=== PATIENT | male | born 1965 ===

== ENCOUNTER → 2019-01-29 | Day surgery (SDC) | payer OTHER ==
--- NOTE | 2019-01-19 14:32 | NUR ---
PATIENT IS GOING TO STOP HIS PHENTERMINE ON Saturday01/29/19
[~2019-01-29] VITALS: Ht 185.4 cm; Wt 132.4 kg
[~2019-01-29] MED LIST: BUPR-472 PO; LIDOCAINE/SOD BICARB 8.4% SYR ID ONE; LISI-353 PO; NORMOSOL R SOLN(*) 1000 ML BAG 1,000 ML IV PRN; PHEN-580 PO; PROPOFOL EMUL(*) 10MG/ML 20 ML 20 ML ONE; PROPOFOL EMUL(*) 10MG/ML 20 ML 40 ML ONE; TEST1.253 INJ; TEST100V5 IM; [UNRECOGNIZED DRUG - CODE] INJ
[2019-01-29 10:19] VITALS: BP 137/88
[2019-01-29 12:06] VITALS: BP 112/61
[2019-01-29 12:15] VITALS: BP 122/70
[2019-01-29 12:51] VITALS: BP 121/85
[2019-01-29 12:53] VITALS: BP 149/98
--- NOTE | 2019-01-29 13:38 | NUR ---
1205- PT. RECEIVED FROM OR VIA STRETCHER WITH THE SIDERAIL UP. SBAR RECEIVED FROM SHERMAN ROBISON AND DR. BLANCHARD. PT. SEE ADMISSION ASSESSMENT. 1216- PT. STILL SLEEPING AND UNRESPONSIVE BUT I TURNED DOWN HIS O2 TO 3LPM NC. 1222- PT. AWAKE AND REMOVED THE O2 HIMSELF. HE IS ASKING FOR SOMETHING TO DRINK. 1225- PT. GIVEN WATER. NOW HE IS ASKING FOR SOMETHING TO EAT. 1230- PT. GIVEN CHEESE AND CRACKERS. 1245- PT. STATES THAT HE IS READY TO GO HOME SO HIS PHONE IS GIVEN TO HIM TO CALL HIS RIDE. 1251- ORTHOSTATICS PREFORMED 1253- WHEN DOING STANDING ORTHOSTATICS PT. STOOD UP VERY QUICKLY AND SAT RIGHT BACK DOWN STATING THAT HE WAS A LITTLE DIZZY BUT STOOD BACK UP STATING THAT HE JUST STOOD UP TOO QUICKLY AND FELT FINE NOW. 1255- PT. GETTING DRESSED. 1300- IV TAKEN OUT AND PRESSURE DRESSING APPLIED. 1305- DISCHARGE INSTRUCTIONS GONE OVER WITH PT. 1315- ESCORTED PT. OUT TO FRIENDS VEHICLE. SEE DISCHARGE INSTRUCTIONS.
== END ==
LOC: OR 00:31
PROVIDERS: ATTEND Family Medicine
DX: Z12.11 Encounter for screening for malignant neoplasm of colon (principal); Z80.0 Family history of malignant neoplasm of digestive organs; K57.30 Diverticulosis of large intestine without perforation or abscess without bleeding
CPT/HCPCS: 00812; 45378; J2704